=== PATIENT | female | born 1975 | race Asian ===

== ENCOUNTER 2019-02-28 07:14 | Emergency (ER) | payer OTHER ==
[~2019-02-28] VITALS: Ht 165.1 cm; Wt 63.5 kg
[2019-02-28 08:20] LABS: *BILIRUBIN,URIN NEGATIVE (NEGATIVE); *BLOOD, URINE 2+ (NEGATIVE); *CLARITY,URINE CLEAR (CLEAR); *COLOR,URINE YELLOW (YELLOW); *KETONES,URINE NEGATIVE (NEGATIVE); *UROBILINOGEN,URINE 0.2 E.U./dl (NORMAL); LEUKOCYTE ESTERASE ,URINE NEGATIVE (NEGATIVE); NITRITE, URINE NEGATIVE (NEGATIVE); UGLUCOSE NEGATIVE (NEGATIVE)
[2019-02-28 08:22] LABS: *URINE HCG, QUAL NEGATIVE (NEGATIVE)
[2019-02-28 08:25] LABS: BASOPHILS % (AUTO) 0.5 % (0.0-2.0); EOSINOPHILS # (AUTO) 0.1 K/uL (0.0-0.7); EOSINOPHILS % (AUTO) 1.7 % (0.0-7.0); HEMATOCRIT 35.4 % (31.2-41.9); LYMPHOCYTES # (AUTO) 1.7 K/uL (20.0-40.0); LYMPHOCYTES % (AUTO) 25.5 % (20.5-51.5); MEAN CORPUSCULAR HEMOGLOBIN 28.9 uug (24.7-32.8); MEAN CORPUSCULAR HGB CONC 34 g/dL (32.3-35.6); MEAN CORPUSCULAR VOLUME 84.8 fL (75.5-95.3); MONOCYTES # (AUTO) 0.4 K/uL (2.0-10.0); MONOCYTES % (AUTO) 5.7 % (0.0-11.0); NEUTROPHILS # (AUTO) 4.4 K/uL (1.8-8.9); NEUTROPHILS % (AUTO) 66.6 % (38.5-71.5); PLATELET COUNT (AUTO) 305 K/uL (179-408); RED BLOOD CELL COUNT(AUTO) 4.17 MIL/uL (3.63-4.92); WHITE BLOOD COUNT (AUTO) 6.6 K/uL (3.8-11.8)
[2019-02-28 08:32] LABS: CREATININE 0.8 mg/dL (0.6-1.3); POTASSIUM 3.5 mmol/L (3.5-5.1)
[2019-02-28 08:38] LABS: BILIRUBIN,DIRECT 0.1 mg/dL (0.0-0.2); BILIRUBIN,TOTAL 0.3 mg/dL (0.2-1.0); TOTAL PROTEIN, SERUM 6.9 g/dL (6.4-8.2)
[2019-02-28 08:38] LABS: BACTERIA,URINE NONE SEEN /HPF (NONE SEEN); SQUAMOUS EPITHELIAL CELL,UR FEW /HPF (NONE SEEN); WBC,URINE 0-3 /HPF (0-3)
--- NOTE | 2019-02-28 10:10 | NUR ---
Patient discharged to home in stable conditon & steady gait. Written & verbal after care instructions given. Patient verbalizes understanding of instructions. Copies of all the tests results given to patient as well.
== END 2019-02-28 10:12 | disposition home or self-care (01) ==
LOC: ER 07:14
DX: N92.0 Excessive and frequent menstruation with regular cycle (principal); Z90.49 Acquired absence of other specified parts of digestive tract
CPT/HCPCS: 36415; 83690; 84703; 85025; 85730; A4663